=== PATIENT | male | born 1990 | race Caucasian/White ===

== ENCOUNTER 2017-08-12 08:06 | Emergency (ER) | payer SELFPAY ==
[~2017-08-12] VITALS: Ht 172.7 cm; Wt 99.5 kg
[~2017-08-12 08:06] MED LIST: FLEXERIL10 MG PO; LORTAB 5-325 M1 EACH PO; MOTRIN800 MG PO; NAPROSYN500 MG PO; NOHOMEMEDS; NORCO 7.5/321 TABLET PO; TESSALON PERLE100 MG PO; TESSALON200 MG PO
[2017-08-12] MEDS ORDERED: PREDNISONE50 MG PO (12:22)
[2017-08-12 12:31] VITALS: BP 157/89
== END 2017-08-12 12:44 | disposition home or self-care (01) ==
LOC: EME 08:06
DX: K12.2 Cellulitis and abscess of mouth (principal); Z88.1 Allergy status to other antibiotic agents
CPT/HCPCS: 87651 90; 99281; 99284; J1200; J2930